=== PATIENT | male | born 1965 | race Caucasian/White ===

== ENCOUNTER 2016-09-17 12:39 | Emergency (ER) | payer BC ==
[2016-09-17 14:55] VITALS: BP 105/65
[2016-09-17] MEDS ORDERED: DOXYcycline CAP(*) 100 MG PO ONE (15:28)
--- NOTE | 2016-09-17 16:01 | UC ---
General HPI - HPI Summary HPI Summary: 5 days ago pt found a tick on his lower abd, bacically on the midline. he speculated that it could have been attached for 2 days or more. pt is here because he is concerned about lyme disease. he has not rash around the lesion and no other sx. - History of Current Complaint Chief Complaint: Bety Stated Complaint: TICK BITES Time Seen by Provider: 09/17/16 14:50 Hx Obtained From: Patient Onset/Duration: Sudden Onset Onset Severity: Mild Current Severity: None Pain Intensity: 0 Associated Signs & Symptoms: Negative: Fever, Headache - Allergy/Home Medications Allergies/Adverse Reactions: Allergies Allergy/AdvReac Type Severity Reaction Status Date / Time No Known Allergies Allergy Verified 09/17/16 14:55 Home Medications: Home Medications NK [No Home Medications Reported] 09/17/16 [History Confirmed 09/17/16] PMH/Surg Hx/FS Hx/Imm Hx Previously Healthy: Yes - Surgical History Surgical History: None - Family History Known Family History: Negative: Cardiac Disease, Hypertension, Diabetes - Social History Occupation: Employed Full-time Lives: With Family Alcohol Use: None Substance Use Type: None Smoking Status (MU): Former Smoker Review of Systems Constitutional: Negative Skin: Negative ENT: Negative Respiratory: Negative Cardiovascular: Negative Gastrointestinal: Negative Musculoskeletal: Negative Neurological: Negative All Other Systems Reviewed And Are Negative: Yes Physical Exam Triage Information Reviewed: Yes Appearance: Well-Appearing, No Pain Distress, Well-Nourished Vital Signs: Initial Vital Signs Temp 98.4 F 09/17/16 14:48 Pulse 84 09/17/16 14:48 Resp 18 09/17/16 14:48 BP 105/65 09/17/16 14:48 Pulse Ox 98 09/17/16 14:48 Vital Signs Reviewed: Yes Eyes: Positive: Conjunctiva Clear. Negative: Discharge ENT: Positive: Hearing grossly normal. Negative: Muffled/hoarse voice Neck: Positive: Supple Respiratory: Positive: Lungs clear, Normal breath sounds, No respiratory distress, No accessory muscle use Cardiovascular: Positive: RRR, No Murmur Musculoskeletal Exam: Normal Neurological: Positive: Alert, Muscle Tone Normal Psychological: Positive: Age Appropriate Behavior Skin Exam: Normal Course/Dx - Differential Dx - Multi-Symptom Provider Diagnoses: tick bite Discharge - Discharge Plan Condition: Stable Disposition: HOME Patient Education Materials: Tick Bite (ED), Lyme Disease (ED) Referrals: No Primary Care Phys,NOPCP [Medical Doctor] - Additional Instructions: DISCUSSED, WE CAN NOT AT THIS TIME DETERMINE WETHER OR NOT YOU HAVE BEEN BITTEN BY A TICK THAT CARRIES LYME DISEASE OR IF IT WAS ATTACHED LONG ENOUGH TO TRANSMIT IT TO YOU. SO FOR NOW, WE HAVE GIVEN YOU A PROPHYLACTIC DOSE OF DOXYCYCLINE AND EDUCATED YOU AN THE SYMPTOMS TO LOOK FOR THAT WOULD INDICATE THAT YOU NEED FURTHER TREATMENT. WE HAVE ALSO INCLUDED SOME EDUCATIONAL MATERIAL ON LYME DISEASE IN THIS DISCHARGE PACKET . DOXYCYCLINE: Doxycycline (Vibramycin, Doryx) is an antibiotic of the tetracycline family. This type of drug is useful for infections of the respiratory tract and genital tract, and is sometimes used for intestinal infections. Unlike most tetracyclines, doxycycline can be taken with food. It is longer acting, and (usually) less prone to side effects than regular tetracycline. Tetracycline antibiotics can stain immature teeth and SHOULD NOT BE TAKEN BY CHILDREN, NURSING MOTHERS, OR WOMEN. Tetracyclines can make you more prone to sunburn. Abdominal cramping, nausea, and diarrhea are occasional side effects. Women may experience vaginal yeast infections. Call the doctor at once if you develop hives, itching, shortness of breath , or lightheadedness. DISCUSSED, DOXY ALSO INCREASES YOUR RISK OF SUNBURN. COVER UP WHEN YOU GO OUTSIDE. ANYTIME YOU TAKE AN ANTIBIOTIC, IT IS IMPORTANT TO REPLENISH YOUR BODY'S SUPPLY OF GOOD BACTERIA. YOU CAN INCREASE YOUR BODY'S SUPPLY OF GOOD BACTERIA BY EATING FOODS LIKE HIGH QUALITY LOCAL YOGURT, SOUR KROUT, SHARA GABO, NATURALLY FERMAENTED PICKLES OR PROBIOTIC DRINKS. YOU CAN ALSO GET GOOD BACTERIA FROM A PROBIOTIC SUPPLEMENT. FOLLOW-UP CARE: You should establish with a private physician for follow-up care. If you are unable to get a timely appointment, or if you are worsening, call us or return for re-evaluation. An additional resource available to assist in finding the appropriate physician for your health care needs is the [facility]erral Center. You may contact them by calling [phone].
== END 2016-09-17 15:40 | disposition home or self-care (01) ==
LOC: UCCORT 12:39
DX: S30.861A Insect bite (nonvenomous) of abdominal wall, initial encounter (principal); W57.XXXA Bitten or stung by nonvenomous insect and other nonvenomous arthropods, initial encounter; Y92.9 Unspecified place or not applicable; Z87.891 Personal history of nicotine dependence
CPT/HCPCS: 99202; A9270-GY; G0463

== ENCOUNTER 2019-08-12 11:13 | Emergency (ER) | payer BC ==
[2019-08-12 11:24] VITALS: BP 109/79
[2019-08-12] MEDS ORDERED: DOXYcycline CAP(*) 100 MG PO ONE (11:43)
--- NOTE | 2019-08-12 11:59 | UC ---
Skin Complaint HPI - HPI Summary HPI Summary: 54 yo WM p/w right chestwall tick bite lateral to the nipple near right midaxillary line noted this AM by who took a tweezer and removed the tick. Per pt tick was noted to be "engorged". Denies h/o lyme dz, denies HASSAN, fatigue, joint aches and tick was noted to be present for less than 24 hrs - History of Current Complaint Chief Complaint: UCSkin Time Seen by Provider: 08/12/19 11:35 Stated Complaint: TICK BITE Hx Obtained From: Patient Onset/Duration: Sudden Onset Skin Exposure Onset/Duration: Hours Ago Onset Severity: Moderate Current Severity: Moderate Pain Intensity: 0 Pain Scale Used: 0-10 Numeric Location: Discrete Character: Swelling, Redness Alleviating Factor(s): Nothing Associated Signs & Symptoms: Positive: Negative - Allergy/Home Medications Allergies/Adverse Reactions: Allergies Allergy/AdvReac Type Severity Reaction Status Date / Time No Known Allergies Allergy Verified 08/12/19 11:24 Home Medications: Home Medications NK [No Home Medications Reported] 09/17/16 [History Confirmed 08/12/19] PMH/Surg Hx/FS Hx/Imm Hx Previously Healthy: Yes - Surgical History Surgical History: None - Family History Known Family History: Negative: Cardiac Disease, Hypertension, Diabetes - Social History Alcohol Use: None Substance Use Type: None Smoking Status (MU): Former Smoker Review of Systems All Other Systems Reviewed And Are Negative: Yes Constitutional: Positive: Negative Skin: Positive: Other - tick bite Eyes: Positive: Negative ENT: Positive: Negative Respiratory: Positive: Negative Cardiovascular: Positive: Negative Gastrointestinal: Positive: Negative Genitourinary: Positive: Negative Motor: Positive: Negative Neurovascular: Positive: Negative Musculoskeletal: Positive: Negative Neurological/Mental Status: Positive: Negative Psychological: Positive: Negative Is Patient Immunocompromised?: No Physical Exam - Summary Physical Exam Summary: Vital Signs Reviewed: Yes Appearance: Positive: No Pain Distress Skin: Positive: Warm, puncture ivan left by tick bite Head/Face: Positive: Normal Head/Face Inspection Eyes: Positive: Normal ENT: Positive: Normal ENT inspection Dental: Negative: Cervical Lymphadenopathy Neck: Positive: Supple Respiratory/Lung Sounds: Positive: Clear to Auscultation Cardiovascular: Positive: Normal, RRR, S1, S2 Abdomen Description: Positive: Nontender Musculoskeletal: Positive: Normal Neurological: Positive: Normal Psychiatric: Positive: Normal Vital Signs: Initial Vital Signs Temp 36.8 C 08/12/19 11:21 Pulse 75 08/12/19 11:21 Resp 16 08/12/19 11:21 BP 109/79 08/12/19 11:21 Pulse Ox 99 08/12/19 11:21 Course/Dx - Course Course Of Treatment: Pt brought tick with him which was removed, body was globular but no obvious blood, less than 24 hrs, Doxy 200mg PO x1 administered. - Diagnoses Provider Diagnosis: Tick bite of chest wall Discharge ED - Sign-Out/Discharge Documenting (check all that apply): Patient Departure All imaging exams completed and their final reports reviewed: No Studies - Discharge Plan Condition: Stable Disposition: HOME Patient Education Materials: Tick Bite (ED) - Billing Disposition and Condition Condition: STABLE Disposition: Home
== END 2019-08-12 11:57 | disposition home or self-care (01) ==
LOC: UCCORT 11:13
DX: S20.361A Insect bite (nonvenomous) of right front wall of thorax, initial encounter (principal); W57.XXXA Bitten or stung by nonvenomous insect and other nonvenomous arthropods, initial encounter; Y92.9 Unspecified place or not applicable; Z87.891 Personal history of nicotine dependence
CPT/HCPCS: 99212; A9270-GY; G0463